=== PATIENT | female | born 1975 | race Caucasian/White ===

== ENCOUNTER 2020-11-20 09:56 | Emergency (ER) | payer OTHER, MEDICAID, SELFPAY ==
[2020-11-20 09:57] VITALS: BP 224/82; PULSE 84; RESP 14; TEMP 36.7; O2SAT 99; BMI 33.2
--- NOTE | 2020-11-20 10:02 | RAD_ITS ---
STUDY: X-RAY - LEFT ELBOW REASON FOR EXAM: Female, 45 years old. trauma TECHNIQUE: 3 view(s) of the elbow. Note that the AP view was imaged with slight flexion. COMPARISON: None. FINDINGS: Normal visualized humerus, radius and ulna. Normal radiocapitellar and ulnotrochlear articulations. The soft tissue structures are unremarkable. RAD/Elbow min 3 Views IMPRESSION: Normal x-ray examination of the elbow. Electronically Signed: Mansi Mendieta MD at 11:09 EDT , Service support ,
--- NOTE | 2020-11-20 10:02 | RAD_ITS ---
STUDY: X-RAY - LEFT HUMERUS REASON FOR EXAM: Female, 45 years old. trauma TECHNIQUE: 2 view(s) of the humerus. COMPARISON: None. FINDINGS: Normal visualized humerus. There is no demonstrated fracture or osseous destructive process. There is no demonstrated soft tissue abnormality. RAD/Humerus min 2 Views IMPRESSION: Normal x-ray examination of the humerus. Electronically Signed: Mansi Mendieta MD at 11:08 EDT , Service support ,
--- NOTE | 2020-11-20 10:05 | EX.ED.UPPERE ---
HPI History of Present Illness Chief Complaint: Upper Extremity Injury Informant: patient Narrative Narrative: Patient tripped and fell in the freezer while she was at work. She landed on her left elbow area. She never hit her head. No loss of consciousness. The fall was mechanical and not syncopal. She has been up walking. No complaints other than the left upper extremity. She has pain mostly around the left elbow area but also toward the left shoulder. No pain in the forearm or hand. She has a little tingling in her hand. This did start after the splint but may be related to the injury also. She had a little bit of nausea in the ambulance but it is better now. No medical problems No meds No allergies Prior appendectomy Lives independently and works full-time [facility] [facility] Medical History no medical history Home Medications naproxen [Naprosyn] 500 mg PO BID #10 tab 07/04/16 [Rx Last Taken Unknown] naproxen 500 mg PO BID #20 tab 11/20/20 [Rx Last Taken Unknown] Allergy/AdvReac Type Severity Reaction Status Date / Time No Known Allergies Allergy Verified 07/04/16 19:27 Social History Smoking Status: Never smoker ROS ROS ED Constitutional Constitutional ED: Denies fever(s) Eyes Eyes: Denies blurry vision or change in vision Cardiovascular Cardiovascular: Denies chest pain or palpitations Respiratory/Chest Respiratory/Chest: Denies dyspnea Gastrointestinal Gastrointestinal: Reports nausea; Denies abdominal pain or vomiting Musculoskeletal Musculoskeletal: Reports other Details: See history of present illness. ; Denies back pain or neck pain Integumentary Denies abscess, Abrasions or rash Neurologic Neurologic: Denies headache(s) Hematologic/Lymphatic Hematologic/Lymphatic: Denies easy bleeding or easy bruising EXAM Physical Exam Const Vital Signs: 11/20/20 09:57 Temperature 98.1 F Temperature Source Temporal Pulse Rate 84 Respiratory Rate 14 Blood Pressure 224/82 H Blood Pressure Mean 129 Pulse Ox 99 Oxygen Delivery Method Room Air Positive well nourished and well developed General Appearance ED: well developed and NAD HEENT normocephalic and atraumatic Neck full ROM and supple Chest Wall inspection of chest normal Resp normal respiratory effort Extremity Extremity Narrative: Patient has a vacuum splint on her left upper extremity. She is in quite a bit of discomfort and this was not fully removed. I looked down the corners. There is no sign of bleeding. She is neurologically intact distally. She has sensation but it seems to be slightly decreased mostly on the ulnar side of her hand. But it does not match a typical neurologic distribution. Pulses and capillary refill are normal. There is some tenderness from just below the humeral head all the way to just past the elbow. Wrist area and hand are not actually tender. Neuro oriented x3 Neuro Narrative: See above. Sensorium / Orientation: alert Skin Lesions: no lesions Rashes: no rashes Trauma: Negative for laceration MDM MDM MDM Narrative Medical decision making narrative: Three-view x-ray of the left elbow and 2 view of the humerus looked at by me and read by radiology showed no sign of acute fracture. I went back to reexamine the patient. We took off the splint. She does have a good developing contusion around the olecranon and medial to that. She does have some tingling in the distribution of the ulnar nerve mostly. I think this is likely a contusion of the nerve. There is no deformity. Range of motion is a little uncomfortable but intact. There is no tenderness about the scapula or clavicle. Pulses and capillary refill are normal. Patient will be placed in a sling. I explained she needs to only use this for a few days. Even during that time she needs to do frequent range of motion both in and completely out of the sling. I demonstrated these motions. This will help prevent stiffness and a frozen shoulder that can be difficult. She will follow up with the [facility]. Discharge Plan Triage Chief Complaint: Upper Extremity Injury ED Provider: Winston Roland Dx/Rx/DC Orders Clinical Impression: Fall from slip, trip, or stumble, Contusion of elbow, left, Neurapraxia of left upper extremity Instructions: ED Contusion, Upper Extremity Prescriptions: New naproxen 500 MG tablet 500 mg PO BID Qty: 20 RF: 0 No Action naproxen [Naprosyn] 500 MG tablet 500 mg PO BID Qty: 10 RF: 0 Primary Care Provider: Constantine Diaz Referrals: Constantine Jang MD [NON-STAFF] - [facility] [NON-STA[facility]] - 2 Days Disposition Disposition: Home, Self Care
[2020-11-20] MEDS: Morphine 4 MG/ML Syringe IV (10:35)
[2020-11-20] MEDS: Ondansetron 4 MG/2 ML Vial IV (10:36)
[2020-11-20 10:47] VITALS: BP 191/101
== END 2020-11-20 11:47 | disposition home or self-care (01) ==
PROVIDERS: Emergency Provider Emergency Medicine; PCP Family Medicine
DX: S50.02XA Contusion of left elbow, initial encounter (principal); S54.02XA Injury of ulnar nerve at forearm level, left arm, initial encounter; W01.0XXA Fall on same level from slipping, tripping and stumbling without subsequent striking against object, initial encounter; Y93.01 Activity, walking, marching and hiking; Y92.89 Other specified places as the place of occurrence of the external cause; Y99.0 Civilian activity done for income or pay
CPT/HCPCS: 73060; 73080; 96374; 96375; 99285; A4216; J2405

== ENCOUNTER 2020-12-27 11:30 | Outpatient (RCR) | payer OTHER, MEDICAID, SELFPAY ==
--- NOTE | 2020-12-20 11:48 | HP.PTEVAL_ITS ---
Patient's Visit Information EVERT DEGROOT is a 45 year old F referred to Physical Therapy by ADENIKE Doyle with a diagnosis of Elbow and Shoulder Contusion. Date of Evaluation: 12/20/20 Physical Therapist: Adri Nolen DPT - Visit Plan Frequency: 3x /Week Duration: 3 Weeks Plan: Left Elbow/Shoulder- focus on ROM- scapular strength/stabilization and return to work activities. Lifts up to #50 at work. HEP given IE: postural correction, standing cane flex/abd/IR/ER, straight arm elbow wrist flexion and extension stretching- encouraged to continue HEP given by [facility] - Subjective Patient reports that she fell about a month ago- she was outside in the big freezer and caught the back of her shoe and fell backwards and landed on her left elbow and shoulder. The pain is not any worse but its more crampy and achy. She has full feeling in her fingers butt he pain is located in the lateral shoulder and radiates to the elbow. She reports the pain is more of a cramp. She is up to a 10# lifting restriction. 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 She is right handed and usually uses her right hand. Worst: 3/10 Agg: work, using it, cold Eases: rest. Describes the pain as achy. No N/T in the finger. Mild decrease in customer care coordinator strength. No CALABRESE, blurred vision, or dizziness. Has had x-rays but no MRI- no injections. Goes back to MD the . Sleep: not disturbed but its painful when she wakes up. PMHx/Meds: no changes. - Objective Posture: FH, RS- can correct with verbal and tactile cues but does not maintain in sitting or standing. Gait: no deviation noted- good arm swing and trunk rotation. Palpation: tender along upper trap, bicipital groove and lateral epicondyle, deltoid. ROM: cervical: WFL, Shoulder: WFL with pain at end range flexion/abduction. Elbow: WFL pain at end range extension, Wrist/Hand: WFL. Sensation: WFL to gross touch bilateral UE. Strength: Scap: Fair minus, Shoulder: 4/5 throughout- tested in neutral due to end range discomfort, Elbow: 4+/5 with discomfort, Ship Unloader:Right:60 Left: 40. Special Test: Impingement: HK: positive, Neer: positive, Empty Can: neg, Lift off: neg - Balance/Special Test Scores Quick DASH Score: 20.4525 - Goals Goal 1:: Patient will be I with HEP and progression Goal Time Frame: 4-6 Weeks Goal 2:: Patient will demo full AROM without pain of the left shoulder and elbow Goal Time Frame: 4-6 Weeks Goal 3:: Patient will maintain proper posture t/o tx session to demo increased scap s/s Goal Time Frame: 4-6 Weeks Goal 4:: Patient will return to all normal ADL's and work related task with less than 2/10 pain Goal Time Frame: 4-6 Weeks - Rehabilitation Potential Physical Therapy Diagnosis: Patient presents with hypomobility after a fall at work. She has decreased painfree left elbow and shoulder ROM, UE and scapular strength/stabilization and muscular endurance leading to poor posture and increased pain with ADLs/work related tasks. Rehabilitation Potential: Good - Anticipated Interventions Patient/Client Instruction: Educate patient on: Benefits of Fitness Program Therapeutic Exercise to Include: Strength training, Endurance training, Agility training, Body mechanics, Postural training, Passive ROM, Active ROM, Scapular Strength/Stabilization Thank you for the opportunity to evaluate your patient. For Medicare and Medicare HMO plans, please review the plan of care and approve it. It will need to be FAXED BACK to us at [phone] for Medicare purposes. For Medicare only, by signing this I certify the plan of care. Please let me know if there are questions or concerns regarding this plan of care. Physician Signature: Date:
--- NOTE | 2021-01-19 09:24 | HP.PT.NRP ---
EVERT DEGROOT was seen in my office for initial evaluation on 12/20/20. The following Plan of Care was established for this patient: Initial Frequency: 3x /Week Initial Duration: 3 Weeks Patient/Client Instruction: Educate patient on: Benefits of Fitness Program Therapeutic Exercise to Include: Strength training, Endurance training, Agility training, Body mechanics, Postural training, Passive ROM, Active ROM, Scapular Strength/Stabilization This patient was last seen in our office . Pertinent comments regarding their Physical therapy will appear below: Patient has been d/c from PT from [facility] and is back to work. Discharge is appropriate. At this point I will be discontinuing this patient from physical therapy. I would be happy to see this patient again in the future if found appropriate by the physician. Thank you! Adri Nolen, MONTANAT Balance/Gait/Functional tests - Balance/Special Test Scores Quick DASH Score: 20.4562
== END 2020-12-27 19:00 | disposition home or self-care (01) ==
LOC: PT 11:30
PROVIDERS: PCP Family Medicine; Referring Provider Physician Assistant; Visit Provider Physician Assistant
DX: S40.012D Contusion of left shoulder, subsequent encounter (principal); S50.02XD Contusion of left elbow, subsequent encounter; X58.XXXD Exposure to other specified factors, subsequent encounter
CPT/HCPCS: 97110; 97161

== ENCOUNTER → 2023-07-12 | Outpatient (CLI) | payer OTHER, SELFPAY | END | disposition home or self-care (01) | LOC: PSN 09:46 | PROVIDERS: PCP Nurse Practitioner Family; Referring Provider Nurse Practitioner Family; Visit Provider Nurse Practitioner Family | DX: R00.2 Palpitations (principal); I10 Essential (primary) hypertension; R01.1 Cardiac murmur, unspecified | CPT/HCPCS: 93225; 93226 ==

== ENCOUNTER → 2023-07-27 | Outpatient (CLI) | payer OTHER, SELFPAY ==
--- NOTE | 2023-07-27 08:15 | CT_ITS ---
STUDY: CT CHEST WITHOUT CONTRAST REASON FOR EXAM: Female, 47 years old. ABNORMAL XRAY LUNG NODULE. Two-month history of cough. RADIATION DOSAGE (If Supplied By Facility): CTDIvol = ( 14.04 ) mGy, DLP = ( 483.99 ) mGycm TECHNIQUE: Transaxial imaging was performed without the administration of intravenous contrast material. Multiplanar coronal and sagittal images were reformatted. Individualized dose optimization techniques were used for this CT. COMPARISON: No relevant priors. FINDINGS: CHEST Minimal increased markings in the anterior aspect of the right middle lobe suggestive of mild scarring. Minimal scarring at the left lung base as well. There is no demonstrated pleural abnormality. Normal heart and pericardium. No coronary artery calcification is seen. Normal mediastinum. Normal hilar regions. Normal unenhanced pulmonary arteries. There is a mild degree of atherosclerotic calcification of the aortic arch. There is evidence of a right-sided aortic arch with a right-sided descending thoracic aorta. There are degenerative changes of the thoracic spine. Hypertrophy of the left adrenal gland suggestive of possible left adrenal adenoma. CT/Chest without Contrast IMPRESSION: Right-sided aortic arch. Findings suggest mild scarring in the anterior aspect of the right middle lobe and left lower lobe. Electronically Signed: Jose Escobar MD at 9:15 EDT ,
--- NOTE | 2023-07-27 08:18 | ECHOD_ITS ---
Reason For Study: MURMUR Procedure This was a 2D Doppler, Color Flow transthoracic echocardiogram. Exam performed in department. Left Ventricle Normal LV size. Mid cavitary false tendon noted. Left ventricular systolic function is normal. The estimated ejection fraction is 65 %. No regional wall motion abnormalities noted. Right Ventricle Normal RV size. Normal systolic function. Atria Normal left atrium. Normal right atrium. Mitral Valve Normal mitral valve. Tricuspid Valve Normal tricuspid valve. Aortic Valve Trisinus/trileaflet aortic valve. Pulmonic Valve Normal pulmonic valve. Great Vessels Normal aortic root. The pulmonary artery is normal size. Normal inferior vena cava. Pericardium/Pleural No pericardial effusion. MMode/2D Measurements & Calculations LVIDd: 4.5 cm IVSd: 0.97 cm Ao root diam: 2.6 cm LVIDs: 3.1 cm LVPWd: 1.1 cm RVDd: 3.4 cm FS: 32.1 % LAV(MOD-bp): 37.4 ml LVAd ap4: 26.4 cm2 SV(MOD-sp4): 49.2 ml LAV(MOD-bp) Indexed: 21.2 ml/m2 LVLd ap4: 7.6 cm LAV(MOD-sp2): 36.3 ml EDV(MOD-sp4): 75.9 ml LAV(MOD-sp4): 38.4 ml EDV(sp4-el): 78.0 ml LVAs ap4: 13.8 cm2 LVLs ap4: 6.4 cm ESV(MOD-sp4): 26.7 ml ESV(sp4-el): 25.4 ml EF(MOD-sp4): 64.8 % EF(sp4-el): 67.4 % SV(sp4-el): 52.5 ml LA A4 area: 15.7 cm2 LA dimension(2D): 3.6 cm RA A4 area: 15.8 cm2 TAPSE: 1.9 cm Time Measurements MV dec time: 0.19 sec Doppler Measurements & Calculations MV E max cory: 89.7 cm/sec Lat Peak E' Cory: 9.5 cm/sec Med Peak E' Cory: 8.4 cm/sec MV A max cory: 66.1 cm/sec E/E' lat: 9.4 E/E' med: 10.7 MV E/A: 1.4 Ao V2 max: 160.9 cm/sec LV V1 max: 122.6 cm/sec PA V2 max: 113.0 cm/sec Ao max P.4 mmHg LV V1 max P.0 mmHg ECHO/Echo Complete Interpretation Summary Normal LV size. Left ventricular systolic function is normal. The estimated ejection fraction is 65 %. Structurally normal valves. Ordering Physician: Nicky Mccray Referring Physician: Nicky Mccray Performed By: Ely Hughes RDCS
== END | disposition home or self-care (01) ==
LOC: CVS 08:12
PROVIDERS: PCP Nurse Practitioner Family; Referring Provider Nurse Practitioner Family; Visit Provider Nurse Practitioner Family
DX: R01.1 Cardiac murmur, unspecified (principal); I51.7 Cardiomegaly; E66.9 Obesity, unspecified; I10 Essential (primary) hypertension; J98.59 Other diseases of mediastinum, not elsewhere classified; N63.12 Unspecified lump in the right breast, upper inner quadrant; R91.8 Other nonspecific abnormal finding of lung field
CPT/HCPCS: 71250; 93306

== ENCOUNTER 2023-08-20 15:37 | Emergency (ER) | payer OTHER, SELFPAY ==
[2023-08-20 15:39] VITALS: BP 117/82; PULSE 82; RESP 18; TEMP 36.5; O2SAT 98
[2023-08-20 15:40] VITALS: BMI 34.9
--- NOTE | 2023-08-20 16:07 | EX.ED.DYSGE1 ---
HPI History of Present Illness Chief Complaint: Flank Pain Informant: patient Onset/Context/Timing Onset: Today Context: Sudden Onset Timing: Continuous Quality: Cramping Location: Left flank Worsened by: Standing Relieved by: Medications by EMS Narrative Narrative: Patient presents with left flank pain that began today. Patient states it began rather suddenly. Patient describes it as cramping. Patient states it has been constant. EMS administered fentanyl and Zofran which has helped. Patient states her pain is worse with standing. Patient admits to some occasional swelling in her legs and feet. Patient states she has also been feeling fatigued. Patient states she has had a cough and some shortness of breath. Patient admits to some nausea but denies any vomiting. Patient denies any dysuria or hematuria. [facility] Medical History (Updated 08/20/23 @ 18:[address] Doroteo Tervino DO) Asthma Hypertension Contusion of left shoulder, initial encounter Contusion of left elbow, initial encounter Contusion of left shoulder Home Medications ?Medication ?Instructions ?Recorded ?Last Taken ?Type cyclobenzaprine 10 mg tablet 10 mg PO TID PRN muscle spasm #30 11/23/20 Unknown Rx tabs ibuprofen 600 mg tablet 600 mg PO Q6H PRN pain #40 tabs 11/23/20 Unknown Rx prednisone 10 mg tablet 10 mg PO DAILY #30 tabs 12/08/20 Unknown Rx ciprofloxacin HCl 500 mg tablet 500 mg PO BID #14 TABLETS 08/20/23 Unknown Rx ondansetron 4 mg disintegrating 4 mg PO Q8H PRN PRN Nausea #10 tabs 08/20/23 Unknown Rx tablet Allergy/AdvReac Type Severity Reaction Status Date / Time No Known Allergies Allergy Verified 12/30/20 10:17 Surgical History (Updated 08/20/23 @ 16:[address] Doroteo Trevino DO) Hx of tubal ligation Hx of appendectomy Social History Smoking Status: Never smoker ROS ROS ED Constitutional Constitutional ED: Denies chills or fever(s) Eyes Eyes: Reports blurry vision; Denies change in vision ENT ENT ED: Denies rhinorrhea or sore throat Cardiovascular Cardiovascular: Denies chest pain or palpitations Respiratory/Chest Respiratory/Chest: Reports cough and dyspnea Gastrointestinal Gastrointestinal: Reports nausea; Denies vomiting Genitourinary Genitourinary ED: Denies dysuria or hematuria Musculoskeletal Musculoskeletal: Reports back pain; Denies neck pain Integumentary Denies abscess or rash Neurologic Neurologic: Denies headache(s) or weakness Allergic/Immunologic Allergic/Immunologic ED: Denies mouth swelling or urticaria EXAM Physical Exam Const Vital Signs: 08/20/23 15:39 08/20/23 17:38 Temperature 97.7 F L Temperature Source Temporal Pulse Rate 82 78 Respiratory Rate 18 18 Blood Pressure 117/82 H 116/82 H Blood Pressure Mean 93 93 Pulse Ox 98 98 Oxygen Delivery Method Room Air Room Air Positive well nourished and well developed General Appearance ED: well developed and NAD HEENT Reports moist mucous membranes Neck supple and no JVD Resp normal respiratory effort and clear to auscultation bilaterally Cardio regular rate and regular rhythm GI non-tender and non-distended Palpation: soft Back/Spine no CVA tenderness Extremity Extremity Narrative: There is trace edema of the ankles bilaterally. There is no calf tenderness noted. General Extremety ED: Yes edema; Negative for tenderness General Extremity: edema Neuro oriented x3, CN's II-XII intact bilaterally and no sensory deficits noted Sensorium / Orientation: alert Motor Exam: strength 5/5 throughout Psych mental status grossly normal MDM MDM MDM Narrative Medical decision making narrative: Differential diagnosis includes ureteral calculus, pyelonephritis, diverticulitis, gastroenteritis, pancreatitis, ectopic , and urinary tract infection. CT scan of the abdomen pelvis will be obtained to assess for ureteral calculus, pyelonephritis, and diverticulitis. CBC will be obtained to assess for leukocytosis and anemia. Comprehensive metabolic profile will be obtained to assess for hepatic function, renal function, and electrolyte abnormality. Lipase will be obtained to assess for pancreatitis. Serum hCG will be obtained to assess for . Urinalysis will be obtained to assess for urinary tract infection and hematuria. Lab Data Attestation: I reviewed the patient's lab results. Lab results narrative: CBC was reviewed and was within normal limits. Comprehensive metabolic profile was reviewed. Potassium was low at 2.7. Glucose was slightly elevated at 177. The remainder is within normal limits. Lipase was reviewed and was normal at 38. Serum hCG was reviewed and was negative. Urinalysis was reviewed. Leukocyte esterase was 500 with 5-10 white blood cells. There is 1+ bacteria. Labs: Laboratory Results - last 24 hr 08/20/23 08/20/23 16:26 17:00 WBC 8.2 RBC 3.97 L Hgb 12.0 Hct 35.4 L MCV 89.2 MCH 30.2 MCHC 33.9 RDW Std Deviation 39.8 RDW Coeff of Pretty 12.2 Plt Count 297 MPV 9.5 Immature Gran % (Auto) 0.500 Neut % (Auto) 76.0 H Lymph % (Auto) 16.2 L [place] % (Auto) 5.6 Eos % (Auto) 1.1 Baso % (Auto) 0.6 Absolute Neuts (auto) 6.2 Absolute Lymphs (auto) 1.33 Nucleated RBC % 0 Sodium 137 Potassium 2.7 L* Chloride 103 Carbon Dioxide 30.0 Anion Gap 4 L BUN 11 Creatinine 0.92 Est GFR (MDRD) Af Amer 85 Est GFR (MDRD) Non-Af 70 BUN/Creatinine Ratio 12.0 Glucose 177 H Calcium 8.7 Total Bilirubin 0.30 AST 15 ALT 25 Alkaline Phosphatase 84 Total Protein 7.0 Albumin 3.3 Globulin 3.7 Albumin/Globulin Ratio 0.9 Lipase 38 Serum , Qual NEGATIVE Urine Color Yellow Urine Clarity Clear Urine pH 6.0 Ur Specific [place] 1.015 Urine Protein Negative Urine Glucose (UA) Normal Urine Ketones Negative Urine Occult Blood 25 H Urine Nitrite Negative Urine Bilirubin Negative Urine Urobilinogen Normal Ur Leukocyte Esterase 500 H Urine RBC 0 SEEN Urine WBC 5-10 SEEN Ur Squamous Epith Cells 0-5 SEEN Urine Bacteria 1+ Urine Mucus 0 SEEN Urine Yeast RARE Radiography Diagnostic Testing: Clinical Impression(s) from Imaging Studies Abdomen/Pelvis CT 08/20/23 16:19 IMPRESSION: Left ovarian cyst measuring approximately 2.75 x 2.7 cm. No evidence for small bowel obstruction or other acute abnormality status post appendectomy. Other findings as above Electronically Signed: Ke Gutiérrez MD at 18:00 EDT Reading Location ID and State: [facility] / [place] Tel , Service support , CT scan of the abdomen pelvis was obtained. There is a left ovarian cyst. There is no evidence of bowel obstruction or other acute abnormality noted. There is no ureteral calculus noted. This was interpreted by the radiologist was also independently reviewed by myself. Additional Tests and Interventions Additional Tests or Interventions: Urine culture was ordered. Treatment and Re-Evaluation :: Patient was given IV fluids. Patient was given a dose of Zofran. Patient was given a dose of potassium for her hypokalemia. Patient was advised of her findings. Patient was given a dose of Cipro here. Patient was given a prescription for Cipro. Patient was instructed to follow-up with her primary care physician in 5 to 7 days. Patient was instructed to return if worse in any way. Patient understood and was agreeable with the plan. All questions were answered. Discharge Plan Triage Chief Complaint: Flank Pain ED Provider: Doroteo Trevino Dx/Rx/DC Orders Clinical Impression: Urinary tract infection, Hypokalemia Instructions: ED Hypokalemia, ED Cystitis Female Adult Prescriptions: New ciprofloxacin HCl 500 mg tablet 500 mg PO BID Qty: 14 0RF ondansetron 4 mg tablet,disintegrating 4 mg PO Q8H PRN PRN (Reason: Nausea) Qty: 10 0RF No Action cyclobenzaprine 10 mg tablet 10 mg PO TID PRN (Reason: muscle spasm) Qty: 30 0RF ibuprofen 600 mg tablet 600 mg PO Q6H PRN (Reason: pain) Qty: 40 0RF prednisone 10 mg tablet 10 mg PO DAILY Qty: 30 0RF Rx Instructions: 4 tablets daily for 3 days, then 3 tablets daily for 3 days, then 2 tablets daily for 3 days, then 1 tablet daily for 3 days Stand Alone Forms: ED Work / School Excuse Primary Care Provider: Nicky Mccray NP Referrals: Nicky Mccray NP, [employer]AIL [employer]OD[employer] [Primary Care Provider] - 5-7 Days Activity Restrictions/Additional Instructions: You have a urinary tract infection that is likely causing your pain. Your potassium was also low. This could be from your hydrochlorothiazide or from your vomiting. Print Language: Marshallese Disposition Disposition: Home, Self Care
--- NOTE | 2023-08-20 16:19 | CT_ITS ---
STUDY: CT ABDOMEN AND PELVIS WITHOUT CONTRAST REASON FOR EXAM: Female, 47 years old. Left flank pain RADIATION DOSAGE (If Supplied By Facility): CTDIvol = ( 12.33 ) mGy, DLP = ( 622.49 ) mGycm TECHNIQUE: Transaxial images were obtained from the dome of the diaphragm to the symphysis pubis without oral contrast, and without intravenous contrast. Sagittal and coronal images were reconstructed. Individualized dose optimization techniques were used for this CT. COMPARISON: None. FINDINGS: Mild bibasilar interstitial thickening... Heart is mildly enlarged Normal liver. Normal gallbladder and extrahepatic biliary system. Normal spleen. Normal pancreas. Normal bilateral adrenal glands. Normal right kidney. Is not obstructed. There is mildly prominent extrarenal pelvis. Normal visualized stomach. Normal small intestine. Normal colon. Appendix not visualized status post appendectomy Normal abdominal aorta. Normal inferior vena cava. Normal retroperitoneum. Mildly prominent uterus which is displaced towards the right and produces extrinsic compression upon the dome of the bladder which is also displaced towards the left Small left ovarian cyst measuring approximately 2.75 x 2.7 cm Normal abdominal wall. Lumbar spine demonstrates mild spondylosis CT/Abdomen/Pelvis without Cont IMPRESSION: Left ovarian cyst measuring approximately 2.75 x 2.7 cm. No evidence for small bowel obstruction or other acute abnormality status post appendectomy. Other findings as above Electronically Signed: Ke Gutiérrez MD at 18:00 EDT ,
[2023-08-20] MEDS: 0.9% Normal Saline (1000mL) 1,000 ML 1000 ML IV (16:25)
[2023-08-20] MEDS: Ondansetron 4 MG/2 ML Vial IV (16:39)
[2023-08-20 16:40] LABS: Absolute Lymphocyte Count 1.33 X10^3/uL (0.83-4.51); Absolute Neutrophil Count 6.2 X10^3/uL (2.0-7.7); Basophil# 0.05 X10^3/uL; Basophil% 0.6 % (0-1); Eosinophil# 0.09 X10^3/uL; Eosinophils% 1.1 % (0-5); Hematocrit 35.4 % (37-47); Lymphocyte # 1.33 X10^3/ul (0.83-4.51); Lymphocyte % 16.2 % (19-41); Mean Corp Hgb Conc 33.9 g/dL (32-36); Mean Corpuscular Hgb 30.2 pg (27.0-32.0); Mean Corpuscular Volume 89.2 fL (81-99); Mean Platelet Vol. 9.5 fl (6.2-12.0); Monocyte# 0.46 X10^3/uL; Monocyte% 5.6 % (0-10); NRBC Flagged by Analyzer 0 % (0-5); Neutrophil # 6.24 X10^3/uL (2.7-7.7); Platelet Count 297 K/mm3 (150-450); RBC Distribution Width CV 12.2 % (11.6-14.6); RBC Distribution Width SD 39.8 fl (35.1-43.9); Red Blood Count 3.97 M/mm3 (4.2-5.4); White Blood Count 8.2 K/mm3 (4.4-11.0)
[2023-08-20 16:55] LABS: Internal QC Validated? YES +Cl - CLEAR BKGD; Pregnancy, Serum, hCG Quali. NEGATIVE Negative
[2023-08-20 17:04] LABS: Mucous, Urine 0 SEEN /hpf (<or=2+); Red Blood Cells-Urine 0 SEEN /hpf (0-5)
[2023-08-20 17:16] LABS: ALB/GLOB Ratio 0.9 RATIO (0.9-2.4); AST(SGOT) 15 U/L (15-37); Alanine Aminotransfer ALT/SGPT 25 U/L (13-56); Albumin, Serum 3.3 g/dL (3.2-5.0); Alkaline Phosphatase 84 U/L (45-117); Anion Gap 4 (5-15); BUN 11 mg/dL (7-18); Calcium,Total 8.7 mg/dL (8.5-10.1); Chloride 103 mmol/L (98-107); Creatinine, Serum 0.92 mg/dL (0.55-1.02); EST Glomerular Filtration Rate 70 mL/min (>60); Est Glom Filt Rate - Afr Amer 85 mL/min (>60); Globulin 3.7 g/dL (2.2-4.2); Glucose 177 mg/dL (74-106); Lipase 38 U/L (13-75); Potassium 2.7 mmol/L (3.5-5.1); Sodium Level 137 mmol/L (136-145)
[2023-08-20 17:17] VITALS: BMI 34.9
[2023-08-20 17:18] LABS: Color, Urine Yellow (Yellow); Glucose, Dipstick Normal (Normal); Ketone-Dipstick Negative (Negative); Leukocyte Esterase-Dipstick 500 /ul (Negative); Nitrite-Dipstick Negative (Negative); Occult Blood-Urine 25 /ul (Negative); Protein-Dipstick Negative (Negative); Specific Gravity, Urine 1.015 (1.002-1.030); Urine Bilirubin Dipstick Negative (Negative); Urine Clarity Clear (Clear); Urine Urobilinogen Normal (Normal)
[2023-08-20] MEDS: Potassium Chloride Oral Tablet 20 MEQ 40 MEQ PO (17:21)
[2023-08-20 17:34] LABS: White Blood Cells 5-10 SEEN /hpf (0-5)
[2023-08-20 17:35] LABS: Bacteria 1+ /hpf (None Seen); Yeast-Urine RARE /hpf (None Seen)
[2023-08-20 17:36] LABS: Squamous Epithelial Cells - UA 0-5 SEEN /hpf (5-10)
[2023-08-20 17:38] VITALS: BP 116/82; PULSE 78; RESP 18; O2SAT 98
[2023-08-20 18:41] VITALS: BP 116/89; PULSE 87; RESP 18; TEMP 36.6; O2SAT 98
== END 2023-08-20 18:46 | disposition home or self-care (01) ==
PROVIDERS: Emergency Provider Emergency Medicine; PCP Nurse Practitioner Family; Visit Provider Emergency Medicine
DX: N39.0 Urinary tract infection, site not specified (principal); I10 Essential (primary) hypertension; R11.0 Nausea; E87.6 Hypokalemia; J45.909 Unspecified asthma, uncomplicated; R06.00 Dyspnea, unspecified; M54.9 Dorsalgia, unspecified; N83.202 Unspecified ovarian cyst, left side
CPT/HCPCS: 74176; 80053; 81001; 83690; 84703; 85025; 96361; 96374; 99283; J7030; J2405

== ENCOUNTER 2023-09-18 10:16 | Emergency (ER) | payer OTHER, SELFPAY ==
[2023-09-18 10:16] VITALS: BP 188/104; PULSE 75; RESP 18; TEMP 35.9; O2SAT 98; BMI 35.1
--- NOTE | 2023-09-18 10:30 | EKG12_ITS ---
Test Reason : Blood Pressure : / mmHG Vent. Rate : 068 BPM Atrial Rate : 068 BPM P-R Int : 156 ms QRS Dur : 088 ms QT Int : 384 ms P-R-T Axes : 021 017 021 degrees QTc Int : 408 ms Normal sinus rhythm Normal ECG Confirmed by Memo Benedict ([id number]), editor city NOHEMI LUCIO ([id number]) on 09/20/2023 9:24:35 AM Referred By: Confirmed By:Memo Benedict
--- NOTE | 2023-09-18 10:34 | EDS_ITS ---
HPI History of Present Illness Chief Complaint: Shortness of Breath Narrative Narrative: 47-year-old female past medical history of hypertension but no longer taking medication because she did not need them presents with 4 to 5 days of swelling of her bilateral lower extremities. She states she saw her primary care provider yesterday, who stated that she had good pulses, but did not put her on any medication for her swelling. Over the last day or so, she began having shortness of breath. She denies any fevers or chills, no cough, no nausea or vomiting, no chest pain. She feels like she is having a hard time catching her breath. She states that her legs and feet are also so painful that she can barely walk and has pain when doing so. PFSH [facility] Medical History Asthma Hypertension Contusion of left shoulder, initial encounter Contusion of left elbow, initial encounter Contusion of left shoulder Home Medications ?Medication ?Instructions ?Recorded ?Last Taken ?Type ondansetron 4 mg disintegrating 4 mg PO Q8H PRN PRN Nausea #10 tabs 08/20/23 Unknown Rx tablet Allergy/AdvReac Type Severity Reaction Status Date / Time No Known Allergies Allergy Verified 12/30/20 10:17 Surgical History Hx of tubal ligation Hx of appendectomy Social History Smoking Status: Never smoker ROS ROS ED ROS Narrative Constitutional: No fever, no chills. HEENT: No sore throat. No neck pain. No loss of vision. No rhinorrhea. Cardiovascular: No chest pain. No palpitations. Positive bilateral pedal edema for 4 to 5 days. Respiratory: No cough, positive shortness of breath. Abdominal: No abdominal pain. No nausea. No vomiting. Genitourinary: No dysuria. No hematuria. Musculoskeletal: No myalgias. No arthralgias. Neurologic: No headaches. No dizziness. No lightheadedness. Skin: No rash. No change in color. Psychiatric: No depression. No anxiety. EXAM Physical Exam Narrative Exam Narrative: Afebrile. Vital signs noted. HEENT: Normocephalic. Atraumatic. PERRL, EOMI. Neck soft and supple. No point tenderness or step off. Cardiovascular: Regular rate and rhythm. No murmurs, rubs, or gallops appreciated. Respiratory: No tachypnea. Lungs clear to auscultation bilaterally. Gastrointestinal: Abdomen soft, nontender, with normoactive bowel sounds. No rebound or guarding. Neurological: Awake. Alert. Nonfocal, nonlateralizing. Skin: No rash. Normal color. No pallor. Musculoskeletal: Positive bilateral symmetric nonpitting pedal edema. Full range of motion extremities. Const Vital Signs: 09/18/23 10:16 09/18/23 10:27 09/18/23 10:32 Temperature 96.7 F L Temperature Source Temporal Pulse Rate 75 Respiratory Rate 18 Respiratory Effort Short of Breath Respiratory Pattern Normal Blood Pressure 188/104 H Blood Pressure Mean 132 Pulse Ox 98 Oxygen Delivery Method Room Air Room Air Room Air 09/18/23 11:13 Temperature Temperature Source Pulse Rate 69 Respiratory Rate 25 H Respiratory Effort Respiratory Pattern Blood Pressure 145/92 H Blood Pressure Mean 109 Pulse Ox 97 Oxygen Delivery Method Room Air MDM MDM MDM Narrative Medical decision making narrative: Differential diagnosis includes but not limited to peripheral edema versus hypertensive urgency versus DVT. For her shortness of breath differential includes pneumothorax versus pneumonia versus pulmonary emboli. I have low suspicion for pulmonary emboli as she is PERC negative. She not having chest pain and her pulse ox is 98% on room air. History and physical does not support pneumonia or pneumothorax. EKG was obtained and interpreted by myself independently as normal sinus rhythm at 68 bpm without ectopy or acute ST changes. No STEMI. I reviewed her laboratory work and she has normal white count of 5.0, hemoglobin 12.4, platelet count normal at 280. Electrolyte panel shows potassium low at 3.3 which was replaced orally with 40 mill equivalents, normal BUN of 10 and creatinine 0.84, glucose elevated at 116 with normal anion gap of 5. High-sensitivity troponin is 5. I do not feel that she requires serial enzymes. BNP is only slightly elevated at 128, I do not feel she requires Lasix or that she is in CHF exacerbation. Additionally, I have low suspicion for PE because she is PERC negative, not tachycardic, not having any chest pain. I do feel that she probably has more peripheral edema. As her swelling is bilateral, I have low suspicion for DVT and do not feel that ultrasound is indicated. She will elevate her leg. Initially she had elevated blood pressure as high as 188 systolic, and it has now come down to 145/92 without intervention. She may need to be restarted on blood pressure medication, but she states that medication used to bottom her out. At this point in time, I do not feel she requires any observation or admission. She does state that at work she stands a lot, for prolonged periods of time. I feel is probably more of a peripheral edema. She will be discharged to follow-up with her primary care provider in the next few days. Return instructions were reviewed. Disposition is discharged home in stable condition. History & Record Review Discussion w/independent historian: Patient Additional record(s) reviewed:: Prior ED visit (Noncontributory) Lab Data Attestation: I reviewed the patient's lab results. Labs: Laboratory Results - last 24 hr 09/18/23 10:38 WBC 5.0 RBC 4.13 L Hgb 12.4 Hct 38.2 MCV 92.5 MCH 30.0 MCHC 32.5 RDW Std Deviation 45.9 H RDW Coeff of Pretty 13.6 Plt Count 280 MPV 9.5 Immature Gran % (Auto) 0.400 Neut % (Auto) 57.4 Lymph % (Auto) 26.0 Alpine % (Auto) 7.7 Eos % (Auto) 7.5 H Baso % (Auto) 1.0 Absolute Neuts (auto) 2.9 Absolute Lymphs (auto) 1.31 Nucleated RBC % 0 Sodium 142 Potassium 3.3 L Chloride 111 H Carbon Dioxide 26.0 Anion Gap 5 BUN 10 Creatinine 0.84 Estim Creat Clear Calc 83.28 Est GFR (MDRD) Af Amer 94 Est GFR (MDRD) Non-Af 78 BUN/Creatinine Ratio 11.9 Glucose 116 H Calcium 8.8 Troponin I High Sens 5 B-Natriuretic Peptide 128.0 H Radiography Diagnostic Testing: Clinical Impression(s) from Imaging Studies Chest X-Ray 09/18/23 10:46 IMPRESSION: Borderline cardiomegaly. The lungs are clear. Right-sided aortic arch. Electronically Signed: Jose Escobar MD at 11:20 EDT , Discharge Plan Triage Chief Complaint: Shortness of Breath ED Provider: Julius Augustine Dx/Rx/DC Orders Clinical Impression: Edema, Shortness of breath Instructions: ED Dyspnea, ED Peripheral Edema, Bilateral Prescriptions: No Action ondansetron 4 mg tablet,disintegrating 4 mg PO Q8H PRN PRN (Reason: Nausea) Qty: 10 0RF Primary Care Provider: Nicky Mccray NP Referrals: Nicky Mccray NP, [facility] NURSE-[facility] [Primary Care Provider] - 3-5 Days if not improving Activity Restrictions/Additional Instructions: Follow-up with your primary care provider. You may need to be started on a low- dose antihypertensive again. Elevate your legs when possible. Return with new or worsening symptoms. Print Language: Tunisian Disposition Disposition: Home, Self Care
--- NOTE | 2023-09-18 10:46 | RAD_ITS ---
STUDY: X-RAY CHEST REASON FOR EXAM: Female, 47 years old. Shortness of breath TECHNIQUE: Single AP portable view of the chest. COMPARISON: None. FINDINGS: The lungs are clear and expanded. There is no demonstrated pleural abnormality. There is borderline cardiomegaly. Normal mediastinum and kaden. Normal visualized pulmonary arteries. There is evidence of a right-sided aortic arch. Normal visualized thoracic spine. Normal visualized ribs, clavicles, and shoulders. There is no demonstrated abnormality of the visualized soft tissue structures of the upper abdomen. RAD/Chest 1 View (Portable) IMPRESSION: Borderline cardiomegaly. The lungs are clear. Right-sided aortic arch. Electronically Signed: Jose Escobar MD at 11:20 EDT ,
[2023-09-18 10:50] LABS: Absolute Lymphocyte Count 1.31 X10^3/uL (0.83-4.51); Absolute Neutrophil Count 2.9 X10^3/uL (2.0-7.7); Basophil# 0.05 X10^3/uL; Eosinophil# 0.38 X10^3/uL; Eosinophils% 7.5 % (0-5); Hematocrit 38.2 % (37-47); Hemoglobin 12.4 g/dL (12.0-15.0); Lymphocyte # 1.31 X10^3/ul (0.83-4.51); Mean Corp Hgb Conc 32.5 g/dL (32-36); Mean Corpuscular Volume 92.5 fL (81-99); Mean Platelet Vol. 9.5 fl (6.2-12.0); Monocyte# 0.39 X10^3/uL; Monocyte% 7.7 % (0-10); NRBC Flagged by Analyzer 0 % (0-5); Neutrophil # 2.89 X10^3/uL (2.7-7.7); Neutrophil % 57.4 % (47-70); Platelet Count 280 K/mm3 (150-450); RBC Distribution Width CV 13.6 % (11.6-14.6); RBC Distribution Width SD 45.9 fl (35.1-43.9); Red Blood Count 4.13 M/mm3 (4.2-5.4)
[2023-09-18 11:11] LABS: Anion Gap 5 (5-15); BUN 10 mg/dL (7-18); BUN/Creat Ratio 11.9 RATIO (10-20); Calcium,Total 8.8 mg/dL (8.5-10.1); Chloride 111 mmol/L (98-107); Creatinine, Serum 0.84 mg/dL (0.55-1.02); EST Glomerular Filtration Rate 78 mL/min (>60); Est Glom Filt Rate - Afr Amer 94 mL/min (>60); Estimated Creatinine Clearance 83.28 ml/min; Glucose 116 mg/dL (74-106); Potassium 3.3 mmol/L (3.5-5.1); Sodium Level 142 mmol/L (136-145); Troponin-I HS 5 pg/mL (3.0-54.0)
[2023-09-18 11:13] VITALS: BP 145/92; PULSE 69; RESP 25; O2SAT 97
[2023-09-18] MEDS: Potassium Chloride Oral Tablet 20 MEQ 40 MEQ PO (11:48)
[2023-09-18 11:54] VITALS: BP 142/71; PULSE 67; RESP 19; TEMP 36.6; O2SAT 98
== END 2023-09-18 11:55 | disposition home or self-care (01) ==
PROVIDERS: Emergency Provider Emergency Medicine; PCP Nurse Practitioner Family; Visit Provider Emergency Medicine
DX: R06.02 Shortness of breath (principal); R60.0 Localized edema; I10 Essential (primary) hypertension
CPT/HCPCS: 71045; 80048; 83880; 84484; 85025; 93005; 99283; A4216

== ENCOUNTER → 2023-10-10 | Outpatient (CLI) | payer OTHER, SELFPAY ==
--- NOTE | 2023-10-10 10:52 | MRI_ITS ---
STUDY: MRI BRAIN WITH AND WITHOUT CONTRAST (ATTENTION PITUITARY GLAND) REASON FOR EXAM: Female, 48 years old. EMPTY SELLA TECHNIQUE: Standardized multiplanar fat and water weighted pulse sequences were obtained. IV 15CC CLARISCAN was administered for the contrast portion of the examination. COMPARISON: None. FINDINGS: There is enlargement of the sella turcica with increased CSF within the sella and flattening of the pituitary gland consistent with an empty sellar syndrome. Normal pituitary glandular tissue is displaced to the right and left of midline and is normal. Normal infundibular stalk, hypothalamus, and optic chiasm. Normal tectal plate and pineal gland.. Normal enhancement of the pituitary gland, without a demonstrated intrapituitary lesion. Normal suprasellar cistern. Normal size of the ventricles and extra-axial spaces for the patient''s age. Single punctate focus of chronic ischemic signal seen in the posterior lateral aspect of the left frontal lobe, which is of no clinical significance. Normal white matter tracts of the supratentorial brain. There is no evidence for recent intracranial ischemia or other cause of cytotoxic edema on diffusion weighted imaging (DWI). Normal T2* images of the brain without demonstrated susceptibility artifact. There is no demonstrated hemosiderin stain. There are no demyelinating plagues of the supratentorial brain, brainstem or cerebellum. There are no findings suspicious for multiple sclerosis (MS). Normal bilateral basal ganglia. Normal thalami. Normal flow voids within the major intracranial circulation suggesting patency by spin echo criteria. Normal venous enhancement. There is no enhancing intra-axial or extra-axial abnormality. There are no focal brain parenchymal lesions or abnormally enhancing lesions. No abnormal thickening or enhancement of meninges or dura is demonstrated. There is no extra-axial fluid accumulation. Normal midbrain, aisha and medulla. Normal cerebellum. Normal basal cisterns. Normal bilateral temporal bones. Normal bilateral internal auditory canals. No demonstrated orbital abnormality, within the constraints of a routine brain study. Normal visualized paranasal sinuses. Normal calvarium and skull base. Normal visualized upper cervical spine. Normal visualized soft tissue structures. MRI/Brain W/WO Contrast IMPRESSION: 1. There is enlargement of the sella turcica with increased CSF within the sella and flattening of the pituitary gland consistent with an empty sellar syndrome. Normal pituitary glandular tissue is displaced to the right and left of midline and is normal. Normal infundibular stalk, hypothalamus, and optic chiasm. Normal enhancement of the pituitary gland, without a demonstrated intrapituitary lesion. 2. Remaining brain parenchyma is within normal limits. Electronically Signed: Chase Cuevas MD at 14:34 EDT ,
== END | disposition home or self-care (01) ==
PROVIDERS: PCP Nurse Practitioner Family; Referring Provider Nurse Practitioner Family; Visit Provider Nurse Practitioner Family
DX: E23.6 Other disorders of pituitary gland (principal)
CPT/HCPCS: 70553; A9575

== ENCOUNTER → 2023-11-08 | Outpatient (CLI) | payer OTHER, SELFPAY | END | disposition home or self-care (01) | LOC: LAB 12:13 | PROVIDERS: PCP Nurse Practitioner Family; Referring Provider Internal Medicine Cardiovascular Disease; Visit Provider Internal Medicine Cardiovascular Disease | DX: E03.9 Hypothyroidism, unspecified (principal) | CPT/HCPCS: 36415; 84443 ==

== ENCOUNTER → 2024-01-21 | Outpatient (CLI) | payer OTHER, SELFPAY ==
[2024-01-21 08:43] LABS: AST(SGOT) 12 U/L (15-37); Alanine Aminotransfer ALT/SGPT 22 U/L (13-56); Albumin, Serum 3.8 g/dL (3.2-5.0); Alkaline Phosphatase 76 U/L (45-117); Anion Gap 6 (5-15); BUN 13 mg/dL (7-18); Calcium,Total 9.4 mg/dL (8.5-10.1); Chloride 106 mmol/L (98-107); Creatinine, Serum 0.86 mg/dL (0.55-1.02); EST Glomerular Filtration Rate 75 mL/min (>60); Est Glom Filt Rate - Afr Amer 91 mL/min (>60); Follicle Stimulating Hormone 22.1 mIU/mL; Free T3 2.6 pg/mL (2.18-3.98); Globulin 3.8 g/dL (2.2-4.2); Glucose 135 mg/dL (74-106); Luteinizing Hormone 48.5 mIU/mL; Potassium 3.8 mmol/L (3.5-5.1); Protein, Total 7.6 g/dL (6.4-8.2); Sodium Level 138 mmol/L (136-145); T4 Free Direct 0.99 ng/dL (0.76-1.46)
[2024-01-24 07:07] LABS: Adrenocorticotropic Hormone 18.7 pg/mL (7.2-63.3); Insulin Like Growth Factor 148 ng/mL (70-225); PROLACTIN 17.9 ng/mL (4.8-33.4); Thyroid Peroxidase AB < 9 IU/mL (0-34)
== END | disposition home or self-care (01) ==
LOC: LAB 07:37
PROVIDERS: PCP Nurse Practitioner Family; Referring Provider Internal Medicine Endocrinology, Diabetes & Metabolism; Visit Provider Internal Medicine Endocrinology, Diabetes & Metabolism
DX: E23.6 Other disorders of pituitary gland (principal)
CPT/HCPCS: 36415; 80053; 82024; 82533; 82670; 83001; 83002; 84146; 84305; 84439; 84481; 86376

== ENCOUNTER → 2024-05-19 | Outpatient (CLI) | payer BC, SELFPAY ==
[2024-05-19 16:56] LABS: Hematocrit 40.3 % (37-47); Hemoglobin 13.5 g/dL (12.0-15.0); Mean Corp Hgb Conc 33.5 g/dL (32-36); Mean Corpuscular Hgb 30.2 pg (27.0-32.0); Mean Corpuscular Volume 90.2 fL (81-99); Mean Platelet Vol. 9.5 fl (6.2-12.0); Platelet Count 316 K/mm3 (150-450); RBC Distribution Width CV 12.3 % (11.6-14.6); RBC Distribution Width SD 40.5 fl (35.1-43.9); Red Blood Count 4.47 M/mm3 (4.2-5.4); White Blood Count 8.2 K/mm3 (4.4-11.0)
[2024-05-19 18:24] LABS: ALB/GLOB Ratio 1.4 RATIO (0.9-2.4); AST(SGOT) 18 U/L (<=31); Alanine Aminotransfer ALT/SGPT 14 U/L (<=34); Albumin, Serum 4.2 g/dL (3.5-5.0); Alkaline Phosphatase 86 U/L (35-104); Anion Gap 11 (5-15); BUN 13 mg/dL (4-19); BUN/Creat Ratio 14.4 RATIO (10-20); Calcium,Total 8.7 mg/dL (7.6-11.0); Carbon Dioxide 22.1 mmol/L (21.0-32.0); Chloride 104 mmol/L (98-108); Cholesterol 151 mg/dL (<=200); Creatinine, Serum 0.93 mg/dL (0.70-1.20); EST Glomerular Filtration Rate 77 (>60); Glucose 102 mg/dL (70-99); High Density Lipoprotein 32 mg/dL; Low Density Lipoprotein Calc. 81 mg/dL; Potassium 3.4 mmol/L (3.3-5.1); Protein, Total 7.2 g/dL (5.9-8.4); Sodium Level 137 mmol/L (133-145); Thyroid Stim Hormone (TSH) 0.707 uIU/mL (0.300-4.200); Total Bilirubin 0.22 mg/dL (0.00-1.30); Triglycerides 190 mg/dL; Very Low Density Lipoprotein 38 mg/dL (5-40); cholesterol:hdl ratio screen 4.76
[2024-05-19 19:35] LABS: Hemoglobin A1c 6.2 % (<=5.6)
== END | disposition home or self-care (01) ==
LOC: LAB 16:11
PROVIDERS: PCP Nurse Practitioner Family; Referring Provider Nurse Practitioner Family; Visit Provider Nurse Practitioner Family
DX: Z00.00 Encounter for general adult medical examination without abnormal findings (principal); E03.8 Other specified hypothyroidism; R73.01 Impaired fasting glucose; E66.9 Obesity, unspecified; I10 Essential (primary) hypertension
CPT/HCPCS: 36415; 80053; 80061; 83036; 84439; 84443; 85027